=== PATIENT | male | born 1980 | race Caucasian/White ===

== ENCOUNTER 2019-12-26 06:53 | Emergency (ER) | payer OTHER ==
[~2019-12-26] VITALS: Ht 162.6 cm; Wt 78.1 kg
[2019-12-26] MEDS ORDERED: KETOROLAC 60MG 2ML VIAL IM ONE (07:30)
[2019-12-26] MEDS ORDERED: diazePAM 10 MG TAB PO ONE (07:30)
--- NOTE | 2019-12-26 07:57 | REPVR ---
PROCEDURE INFORMATION: Exam: XR Right Shoulder Exam date and time: 12/26/2019 7:35 AM Age: 39 years old Clinical indication: Pain; Shoulder; Right; Additional info: Severe pain, following workout yesterday TECHNIQUE: Imaging protocol: XR Right shoulder. Views: 2 or more views. COMPARISON: No relevant prior studies available. FINDINGS: Bones/joints: No acute fracture or dislocation is identified. No focal lytic or blastic lesion is identified. There is no osseous erosion or cortical destruction. Soft tissues: The soft tissues appear grossly unremarkable. IMPRESSION: No significant abnormality. Electronically signed by: Scottie Johnson On 12/26/2019 07:57:14 AM
[2019-12-26 08:08] VITALS: BP 124/65
[2019-12-26] MEDS ORDERED: CYCL-707 PO (08:10)
== END 2019-12-26 08:10 | disposition home or self-care (01) ==
LOC: M ED 06:53
DX: M25.511 Pain in right shoulder (principal)
CPT/HCPCS: 73030; 96372; 99283; J1885